=== PATIENT | female | born 1975 | race Caucasian/White ===

== ENCOUNTER 2023-05-30 14:16 | Emergency (ER) | payer MEDICAID ==
[2023-05-30 14:25] VITALS: BP 126/84; O2SAT 99
--- NOTE | 2023-05-30 14:40 | ED Physician Documentation ---
PD HPI UPPER EXT INJURY - Stated complaint Stated Complaint: RT ARM PX - Chief complaint Chief Complaint: Ext Problem - History obtained from History obtained from: Patient - History of Present Illness Location: Right - Additonal information Additional information: Without specific injury she develops pain of the musculature of the dorsal right forearm today. There is no overuse or injury that she recalls. This is not something that is never happened to her before. She is right-handed. 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: Tubal ligation - Present Medications Home Medications: Ambulatory Orders Medication Instructions Recorded Confirmed Ibuprofen [Motrin] 800 mg PO Q8H PRN #20 tablet 05/30/23 - Allergies Allergies/Adverse Reactions: Allergies Allergy/AdvReac Type Severity Reaction Status Date / Time No Known Drug Allergies Allergy Verified 05/30/23 14:19 - Social History Does the pt smoke?: No Smoking Status: Never smoker Does the pt drink ETOH?: Yes Does the pt have substance abuse?: No Substance Use and Type: Marijuana - Immunizations Immunizations are current?: Yes - POLST Patient has POLST: No PD ED PE NORMAL - Vitals Vital signs reviewed: Yes - General General: Alert and oriented X 3, No acute distress - Extremities Extremities: Other (Tender over the muscle belly of the dorsal right forearm also with tenderness of the lateral epicondyle. No warmth or redness. Full passive range of motion but she does have pain with forced flexion of the right wrist.) - Neuro Neuro: Alert and oriented X 3 Results - Vitals Vitals: Vital Signs - 24 hr 05/30/23 14:20 Temperature 36.8 C Heart Rate 72 Respiratory 16 Rate Blood Pressure 126/84 H O2 Saturation 99 Oxygen O2 Source Room air - Rads (name of study) R forearm [id number] Relevant Findings:: Final report received, EMP independent interpretation of test PD Medical Decision Making - ED course ED course: C/W lateral epicondylitis. No e/o infection. Departure - Departure Disposition: 01 Home, Self Care Clinical Impression: Lateral epicondylitis of right elbow Condition: Good Record reviewed to determine appropriate education?: Yes Instructions: ED Epicondylitis Lateral Elbow, Tendonitis and Tenosynovitis Follow-Up: [facility] [Provider Group] - Within 1 week Prescriptions: Ibuprofen [Motrin] 800 mg PO Q8H PRN #20 tablet PRN Reason: PAIN &/OR FEVER Comments: You are seen today for what appears to be lateral epicondylitis which is also known as tennis elbow, although it is not always related to playing tennis. You should go to the drugstore of your choice and get a tennis elbow band which you do not need a prescription for and use it per package instructions. You can also apply heat and generally rest the arm. Follow-up with our orthopedic surgeons in a week especially if not better, return for new or worsening symptoms. Forms: PCP List Discharge Date/Time: 05/30/23 15:56
[2023-05-30] MEDS: IBUPROFEN 800 MG TABLET PO STA (14:57)
--- NOTE | 2023-05-30 16:03 | XRAY Report ---
PROCEDURE: Forearm RT INDICATIONS: arm pain TECHNIQUE: 2 views of the forearm were acquired. COMPARISON: None. FINDINGS: Bones: No fractures or dislocations. No suspicious bony lesions. Soft tissues: No suspicious soft tissue calcifications or masses. IMPRESSION: No acute bony abnormality. Reviewed by: Randall Marie MD on 05/30/2023 4:01 PM [facility] Approved by: Randall Marie MD on 05/30/2023 4:01 PM [facility] Station ID: [id number]
== END 2023-05-30 15:56 | disposition home or self-care (01) ==
LOC: ED 14:16
DX: M77.11 Lateral epicondylitis, right elbow (principal)
CPT/HCPCS: 73090; 99283; A9270

== ENCOUNTER 2023-08-10 09:45 | Emergency (ER) | payer MEDICAID ==
--- NOTE | 2023-08-10 10:42 | ED Physician Documentation ---
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 A home test she did was positive still was not sure whether was the particular test or not. She is aware the results of the test today would not be sufficient for her licensing as a would collect a separate test onsite for that. 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: Tubal ligation - Present Medications Home Medications: Ambulatory Orders Medication Instructions Recorded Confirmed Naproxen 500 mg PO BID 08/10/23 08/10/23 - Allergies Allergies/Adverse Reactions: Allergies Allergy/AdvReac Type Severity Reaction Status Date / Time No Known Drug Allergies Allergy Verified 08/10/23 09:47 - Social History Does the pt smoke?: No Smoking Status: Never smoker Does the pt drink ETOH?: Yes Does the pt have substance abuse?: Yes Substance Use and Type: Marijuana - Immunizations Immunizations are current?: Yes - POLST Patient has POLST: No PD ED PE NORMAL - Vitals Vital signs reviewed: Yes - General General: Alert and oriented X 3, No acute distress, Well developed/nourished - Derm Derm: Normal color, Warm and dry Results - Vitals Vitals: Vital Signs - 24 hr 08/10/23 08/10/23 09:48 11:42 Temperature 36.6 C Heart Rate 72 67 Respiratory 16 16 Rate Blood Pressure 121/78 140/90 H O2 Saturation 100 98 Oxygen O2 Source Room air - Labs Labs: Laboratory Tests 08/10/23 10:53 Urine Opiates Screen NEGATIVE Ur Buprenorphine Scrn NEGATIVE Ur Oxycodone Screen NEGATIVE Urine Methadone Screen NEGATIVE Ur Barbiturates Screen NEGATIVE Ur Tricyclics Screen NEGATIVE Ur Phencyclidine Scrn NEGATIVE Ur Amphetamine Screen NEGATIVE U Methamphetamines Scrn NEGATIVE U Benzodiazepines Scrn NEGATIVE Urine Cocaine Screen NEGATIVE U Cannabinoids Screen POSITIVE H Ur Drug Screen Comment CUTOFF CONC BELOW: PD Medical Decision Making - ED course Complexity details: considered differential (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 Last cannibis use was about 5 weeks ago. Requesting urine test. ), d/w patient ED course: Not particularly an ER process I did feel I could accommodate the patient with a urine test with the results being her information and certainly when she does apply for the CDL license they will get their own urine test onsite so this would be just informational. She was understanding of that. Departure - Departure Disposition: 01 Home, Self Care Clinical Impression: Patient request for diagnostic testing Condition: Stable Comments: Your urine test is still positive for cannabinoids today. It will store in the fatty tissue and just slowly reach out and can often take a month or more. Things that can help would be just a light bit of exercise regularly to increase metabolism through all your tissues and also to stay well- hydrated. And particularly want to hydrate quite well before repeating tests to dilute the urine a little bit more. Otherwise there is no real leaching it or medication to get it from the system. Forms: PCP List Discharge Date/Time: 08/10/23 11:42
[2023-08-10 11:14] LABS: AMPHETAMINE SCREEN,URINE NEGATIVE (NEGATIVE); BARBITURATE SCREEN,UR NEGATIVE (NEGATIVE); BENZODIAZEPINES SCREEN, URINE NEGATIVE (NEGATIVE); BUPRENORPHINE SCREEN, URINE NEGATIVE (NEGATIVE); COCAINE SCREEN URINE NEGATIVE (NEGATIVE); METHADONE SCREEN, URINE NEGATIVE (NEGATIVE); METHAMPHETAMINES SCREEN, URINE NEGATIVE (NEGATIVE); OPIATE SCREEN, URINE NEGATIVE (NEGATIVE); OXYCODONE SCREEN, URINE NEGATIVE (NEGATIVE); THC CANNABINOID SCREEN, URINE POSITIVE (NEGATIVE); TRICYCLIC ANTIDEPRESSANT,URINE NEGATIVE (NEGATIVE)
[2023-08-10 11:52] VITALS: BP 140/90; O2SAT 98
== END 2023-08-10 11:42 | disposition home or self-care (01) ==
LOC: ED 09:45
DX: Z02.1 Encounter for pre-employment examination (principal)
CPT/HCPCS: 80306; 99282; 99283